=== PATIENT | male | born 1990 | race Caucasian/White ===

== ENCOUNTER → 2022-12-25 11:03 | Outpatient (CLI) | payer OTHER, SELFPAY ==
--- NOTE | 2022-12-25 | DI.MRI.S_ITS ---
PROCEDURE: MR SHOULDER RT W CON INDICATIONS: SHOULDER PAIN TECHNIQUE: After the administration of 12 mL of dilute intra-articular Gadolinium contrast, oblique coronal T1 and T2 spin echo with fat saturation, oblique sagittal T1 spin echo with and without fat saturation, oblique sagittal T2 fast spin echo with fat saturation, axial T1 spin echo with fat saturation through the shoulder. COMPARISON: None. FINDINGS: Image quality: Excellent. Rotator cuff: Low-grade articular and bursal surface partial thickness tear involving distal supraspinatus at its insertion on the humeral head is seen extending to musculotendinous junction. Distal infraspinatus tendinosis is noted. Distal subscapularis tendon is intact. No full-thickness rotator cuff tendon rupture. No rotator cuff muscle atrophy on sagittal images. Bones and bursae: No bone marrow contusions or fractures. No acromioclavicular joint degeneration. The acromion demonstrates conventional anatomy, without an os acromiale. Capsule and soft tissues: Signal abnormality , contour irregularity and abnormal contrast extension in superior anterior labrum at 1 to 2 o'clock position is seen concerning for superior anterior labral tear. The glenohumeral ligaments appear intact. The long head of the biceps tendon demonstrates normal location and morphology. The rotator interval appears normal, without fibrosis. The coracohumeral ligament is of normal thickness. No intra-articular bodies. IMPRESSION: 1. Low-grade articular and bursal surface partial thickness tear involving distal supraspinatus extending to musculotendinous junction. Distal infraspinatus tendinosis. No full-thickness rotator cuff tendon rupture. 2. No marrow edema. No fracture or dislocation. No intra-articular loose bodies. 3. Finding is concerning for subtle superior anterior labral tear at 1 to 2 o'clock position. Dictated by: Darrick Cardona M.D. on 12/25/2022 at 16:12 Approved by: Darrick Cardona M.D. on 12/25/2022 at 16:14
--- NOTE | 2022-12-25 | DI.RAD.S_ITS ---
PROCEDURE: FL SHOULDER INJECTION MR/CT RT INDICATIONS: SHOULDER PAIN COMPARISON: None TECHNIQUE: The indications, alternatives, benefits, risks, and complications of the procedure were explained to the patient. Written informed consent was obtained and placed in the chart. The shoulder was examined fluoroscopically and a site for needle placement chosen for entry into the glenohumeral joint from an anterior approach. The skin was prepped and draped in a sterile fashion, and 1% lidocaine infiltrated from skin down to joint capsule. A spinal needle was inserted into the glenohumeral joint, and a small amount of iodinated contrast media injected to confirm intra-articular placement of the needle tip. This was followed by approximately 12 mL dilute solution of a gadolinium containing MR contrast agent. The needle was removed and a dressing was applied. The patient was given postprocedural instructions and sent to the MR suite for MR imaging. FINDINGS: A single fluoroscopic spot image demonstrates intra-articular location of injected iodinated contrast. IMPRESSION: Successful fluoroscopically guided administration of dilute Gadolinium solution into the shoulder joint for MR arthrogram. Dictated by: Tim Amezcua M.D. on 12/25/2022 at 14:11 Approved by: Tim Amezcua M.D. on 12/25/2022 at 14:11
[2022-12-25] MEDS: LIDOCAINE 1% MDV 30 ML INJ (14:20)
[2022-12-25] MEDS: SODIUM CHLORIDE 0.9 % 20 ML VIAL IV (14:21)
== END ==
PROVIDERS: Referring Provider Internal Medicine; Visit Provider Internal Medicine
DX: M75.111 Incomplete rotator cuff tear or rupture of right shoulder, not specified as traumatic (principal); M25.319 Other instability, unspecified shoulder
CPT/HCPCS: 23350; 73222; 77002; A9270